=== PATIENT | male | born 1975 | race American Indian/Alaskan Native ===

== ENCOUNTER 2020-10-23 23:50 | Emergency (ER) | payer OTHER ==
--- NOTE | 2020-10-24 03:48 | XRay Report ---
CHEST 1 VIEW INDICATION: left chest pain COMPARISON: FINDINGS: SUPPORT DEVICES: None. HEART / MEDIASTINUM: No significant abnormality. LUNGS / PLEURA: No significant pulmonary or pleural abnormality. No pneumothorax. ADDITIONAL FINDINGS: Scoliosis thoracic spine with surgical rods place IMPRESSION: 1. No acute cardiopulmonary disease Signer Name: Santana Brownlee MD Signed: 10/24/2020 3:44 AM Workstation Name: [id number]
--- NOTE | 2020-10-24 03:49 | XRay Report ---
CLINICAL DATA: left shoulder pain TECHNICAL DATA: AP internal, AP external, and Y views were obtained of the shoulder. FINDINGS: There is no acute fracture. The glenoid fossa humeral head articulation is normal. There is no acromi oclavicular joint widening or offset. The coracoclavicular distance is normal. There are no significa nt degenerative changes. IMPRESSION: No acute radiographic abnormality. Multilocular Signer Name: Santana Brownlee MD Signed: 10/24/2020 3:44 AM Workstation Name: [id number]
[2020-10-24 05:29] VITALS: BP 112/62
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
--- NOTE | 2020-10-26 21:31 | Electrocardiograph Report ---
[facility] Test Date: 2020-10-24 Test Time: 02:18:16 Pat Name: SAMANTHA LIN Department: Room: Gender: M Retail Account Manager: OG : 1975 Requested By: ERIC APONTE III Order Number: [id number] Reading MD: Oswald Sofia Measurements Intervals Edward Rate: 51 P: 63 DE: 182 QRS: 37 QRSD: 93 T: 52 QT: 409 QTc: 377 Interpretive Statements Sinus bradycardia ST elevation suggests acute pericarditis No previous ECG available for comparison Electronically Signed On 10-26-2020 21:31:28 EDT by Oswald Sofia
== END 2020-10-24 05:29 | disposition home or self-care (01) ==
LOC: ED 23:50
DX: R10.13 Epigastric pain (principal); R07.89 Other chest pain; M79.10 Myalgia, unspecified site; E11.9 Type 2 diabetes mellitus without complications; G43.909 Migraine, unspecified, not intractable, without status migrainosus; Z98.890 Other specified postprocedural states; Z79.899 Other long term (current) drug therapy; V49.49XA Driver injured in collision with other motor vehicles in traffic accident, initial encounter; W22.10XA Striking against or struck by unspecified automobile airbag, initial encounter; Y93.89 Activity, other specified; Y92.410 Unspecified street and highway as the place of occurrence of the external cause; Y99.8 Other external cause status
CPT/HCPCS: 71045; 93005